=== PATIENT | female | born 1950 | race Two or more races ===

== ENCOUNTER 2019-05-19 03:08 | Inpatient (IN) | payer MEDICARE, MEDICAID ==
[~2019-05-19] VITALS: Ht 160 cm; Wt 68.5 kg
[2019-05-19] VITALS (10 sets, daily range): BP systolic 96–143; BP diastolic 42–67
--- NOTE | 2019-05-19 05:30 | NUR ---
OR NURSE MANAGER OPENING NOTE RECEIVED PATIENT IN BED BY EMS TRANSFER FROM [facility]. PATIENT IS A/OX4 TAGALOG SPEAKER BUT UNDERSTANDS CHINESE WITH DAUGHTER DONNA AT BEDSIDE. PATIENT IN NO SIGN OF ANY DISTRESS. ON 2L OF VIA NASAL CANNULA WITH NO SIGNS OF SOB. PATIENT DOES NOT COMPLAIN OF ANY DISCOMFORT. HAS A RIGHT FOREARM IV #24 PATENT AND FLUSHING. PUPILS REACTIVE TO LIGHT. LUNGS SOUNDS CLEAR. BOWELS SOUNDS PRESENT WITH NO PAIN. WILL CONTINUE TO MONITOR FOR KACEY.
[2019-05-19] MEDS ORDERED: LOSA100T31 PO (05:57)
[2019-05-19] MEDS ORDERED: CARV6.252 PO (05:57)
[2019-05-19] MEDS ORDERED: AMLO10TA7 PO (05:57)
[2019-05-19] MEDS ORDERED: ONDANSETRON HCL/PF 4 MG/2 ML VIAL IVP PRN (07:00)
[2019-05-19] MEDS ORDERED: MAGNESIUM HYDROXIDE 30 ML UDC PO PRN (07:00)
[2019-05-19] MEDS ORDERED: HYDROCODONE/APAP 5/325MG 1 EACH TABLET PO PRN (07:00)
[2019-05-19] MEDS ORDERED: MAG HYDROX/AL HYDROX/SIMETH 30 ML UDC PO PRN (07:00)
[2019-05-19] MEDS ORDERED: ZOLPIDEM TARTRATE 5 MG TABLET PO PRN (07:00)
[2019-05-19] MEDS ORDERED: Z GUARD REMEDY 2 OZ OINT TP PRN (07:00)
[2019-05-19] MEDS: IV NS 0.9% 1,000 ML IV PRN ×2 (07:02→07:15)
--- NOTE | 2019-05-19 07:52 | NUR ---
RESTAURANT MANAGEMENT INTERNSHIP CLOSING PATIENT IN BED WITH NO SIGN OF ANY DISTRESS. DAUGHTER AT BEDSIDE. TOLERATING 2L OF 02 WITH NO SIGNS OF SOB. PATIENT ON MONITOR NSR WITH HR IN THE 100'S. ALL SAFETY PRECAUTIONS APPLIED. ENDORSED PATIENT TO MORNING SHIFT NURSE FOR KACEY.
[2019-05-19 08:25] LABS: BASOPHILS % (AUTO) 0.1 % (0.0-2.0); EOSINOPHILS % (AUTO) 0.2 % (0.0-6.0); LYMPHOCYTES # (AUTO) 1.1 /CMM (0.8-4.8); MEAN CORPUSCULAR HGB CONC 31 g/dl (31.0-36.0); MEAN CORPUSCULAR VOLUME 94 fL (82-100); MONOCYTES # (AUTO) 1.3 /CMM (0.1-1.30); MONOCYTES % (AUTO) 8.7 % (2.0-12.0); NEUTROPHILS # (AUTO) 12.9 /CMM (1.8-8.9); PLATELET COUNT (AUTO) 72 /CMM (150-450); WHITE BLOOD COUNT (AUTO) 15.3 K/uL (4.3-11.0)
[2019-05-19 08:32] LABS: RED BLOOD CELL COUNT(AUTO) 1.82 MIL/uL (4.0-5.2)
[2019-05-19 08:36] LABS: ALBUMIN 1.9 g/dL (3.4-5.0); BILIRUBIN,TOTAL 0.3 mg/dL (0.2-1.0); CALCIUM, SERUM 7.3 mg/dL (8.5-10.1); CREATININE 0.7 mg/dL (0.6-1.3); MAGNESIUM 1.7 mg/dL (1.8-2.4); PHOSPHORUS 3.2 mg/dL (2.5-4.9); POTASSIUM 3.6 mmol/L (3.5-5.1); TOTAL PROTEIN, SERUM 4.1 g/dL (6.4-8.2)
[2019-05-19 08:38] LABS: HEMATOCRIT 17 % (33-45); HEMOGLOBIN 5.3 g/dL (11.5-14.8)
[2019-05-19 08:41] LABS: THYROID STIMULATING HORMONE 0.563 uIU/mL (0.358-3.74)
[2019-05-19 09:14] LABS: LYMPHOCYTES % (MANUAL) 10 % (16-48); MONOCYTES % (MANUAL) 5 % (0-11.0); NEUTROPHILS % (MANUAL) 85 (42-76)
--- NOTE | 2019-05-19 10:16 | NUR ---
Received report from JOE Mcgarry. Patient chart check. Diet order and blood consent signature pending . Bakari Alicia RN
[2019-05-19 10:40] LABS: IRON, SERUM 25 ug/dl (50-175); TOTAL IRON BINDING CAPACITY 165 ug/dl (250-450)
--- NOTE | 2019-05-19 13:29 | NUR ---
MRSA of nares specimen sent to laboratory for testing. Patient blood transfusion ongoing. Patient has a productive cough. Spouse of patient also has cough. Request for patient to provide stool ob if able. Placed container in toilet. Will monitor patient. Bakari Alicia RN
[2019-05-19] MEDS: Magnesium 1GM/D5W 100ML PREMIX 100 ML IV SCH ×2 (14:43→16:38)
--- NOTE | 2019-05-19 14:55 | NUR ---
Patient completion of 1 unit packed red blood cell. Vital signs are stable. Patient is watching television with family. Bakari Alicia RN
[2019-05-19] MEDS: GUAIFENESIN/D-METHORPHAN HB 5 ML UDC PO PRN ×2 (15:19→19:56)
[2019-05-19 16:30] LABS: HEMOGLOBIN 7.4 g/dL (11.5-14.8)
--- NOTE | 2019-05-19 19:12 | NUR ---
Handoff with night team RN, Chante. Bakari Alicia
--- NOTE | 2019-05-19 19:15 | NUR ---
OPENING NOTES RECEIVED PATIENT SITTING ON CHAIR, AWAKE, A/OX4, TAGALOG SPEAKING BUT UNDERSTANDS BHUTANESE, DAUGHTER DONNA AT BEDSIDE. DENIES ANY PAIN. ON TELE MONITOR ST WITH HR 120'S. ON ROOM AIR, TOLERATING WELL, NO SIGNS OF SOB OR RESPIRATORY DISTRESS NOTED, HOWEVER C/O COUGHING, WILL ADMINISTER PRN COUGH MEDICATION. IV SITE RIGHT FOREARM #20G AND RIGHT AC 22G, BOTH FLUSHING AND PATENT, IVF RUNNING ORDERED, NO INFILTRATION/INFECTION NOTED. PATIENT STATUS POST BLOOD TRANSFUSION 1 UNIT PRBC TODAY. SAFETY MEASURES IN PLACE; CALL LIGHT WITHIN REACH, SIDE RAILS UP X2, BED LOW AND LOCKED POSITION. WILL CONTINUE TO MONITOR CLOSELY.
--- NOTE | 2019-05-19 20:00 | NUR ---
RN NOTES PATIENT PLACED ON OXYGEN 2L VIA NC DUE TO LOW O2 SAT 93%, TOLERATING WELL, NO SOB OR RESPIRATORY DISTRESS NOTED. WILL CONT TO MONITOR.
--- NOTE | 2019-05-19 21:26 | NUR ---
Met with patient and daughter Eloise at bedside. Patient is alert and pleasant, she lives with family on the second floor apartment with stairs access only. At baseline, she was ambulatory and independent with adl's. Has no DME or homehealth reported. She finished her 6th cycle of chemotherapy at [facility]. Her pcp is Dr. Jacinto in [place] [phone]. She has good family support and receives 80hours/month IHSS. Current dc plan is to return home, family will provide ride. Addendum: 05/19/19 at 2126 by PEDRO LUIS ARDON RN Amended: Links added.
--- NOTE | 2019-05-19 23:55 | NUR ---
RN NOTES RN ROUNDING DONE, PATIENT REQUESTING COUGH MEDICATION. DAUGHTER DONNA AT BEDSIDE. WILL ADMINISTER PRN ROBITUSSIN. WILL CONT TO MONITOR PT.
[2019-05-20] VITALS (67 sets, daily range): BP systolic 64–138; BP diastolic 34–73
[2019-05-20] MEDS: IV NS 0.9% 1,000 ML IV PRN ×2 (03:57→19:48)
[2019-05-20] MEDS: GUAIFENESIN/D-METHORPHAN HB 5 ML UDC PO PRN ×3 (04:04→20:33)
--- NOTE | 2019-05-20 07:04 | NUR ---
RN CLOSING NOTES PATIENT SITTING ON BED, AWAKE, A/OX4, TAGALOG SPEAKING BUT UNDERSTANDS AUSTRALIAN, DAUGHTER DONNA AT BEDSIDE. DENIES ANY PAIN. ON TELE MONITOR ST WITH HR 100'S. ON OXYGEN 2L VIA NC, TOLERATING WELL, NO SIGNS OF SOB OR RESPIRATORY DISTRESS NOTED. IV SITE RIGHT FOREARM #20G AND RIGHT AC 22G, BOTH FLUSHING AND PATENT, IVF RUNNING ORDERED, NO INFILTRATION/INFECTION NOTED. SAFETY MEASURES IN PLACE; CALL LIGHT WITHIN REACH, SIDE RAILS UP X2, BED LOW AND LOCKED POSITION. WILL ENDORSE TO AM RN FOR KACEY.
[2019-05-20 07:11] LABS: EOSINOPHILS % (AUTO) 0.2 % (0.0-6.0); LYMPHOCYTES # (AUTO) 1.2 /CMM (0.8-4.8); LYMPHOCYTES % (AUTO) 6.9 % (20.0-44.0); MEAN CORPUSCULAR HGB CONC 31 g/dl (31.0-36.0); MEAN CORPUSCULAR VOLUME 92 fL (82-100); MONOCYTES # (AUTO) 1.8 /CMM (0.1-1.30); MONOCYTES % (AUTO) 10.1 % (2.0-12.0); NEUTROPHILS # (AUTO) 14.5 /CMM (1.8-8.9); NEUTROPHILS % (AUTO) 82.8 % (43.0-81.0); PLATELET COUNT (AUTO) 77 /CMM (150-450); WHITE BLOOD COUNT (AUTO) 17.6 K/uL (4.3-11.0)
[2019-05-20 07:25] LABS: CALCIUM, SERUM 7.3 mg/dL (8.5-10.1); CREATININE 0.4 mg/dL (0.6-1.3); MAGNESIUM 2.2 mg/dL (1.8-2.4); PHOSPHORUS 2.5 mg/dL (2.5-4.9); POTASSIUM 3.5 mmol/L (3.5-5.1)
[2019-05-20 07:32] LABS: RED BLOOD CELL COUNT(AUTO) 1.99 MIL/uL (4.0-5.2)
[2019-05-20 07:34] LABS: HEMATOCRIT 18 % (33-45); HEMOGLOBIN 5.6 g/dL (11.5-14.8)
--- NOTE | 2019-05-20 08:00 | NUR ---
RN note SPOKE WITH DR MORENO REGARDING HGB 5.6 HCT 18, AND PT HAS BLACK STOOL WITH BRIGHT RED BLOOD, HE ORDERED 2 UNITS PRBCS STAT. WILL ORDER AND CARRY OUT ORDERS.
[2019-05-20 08:30] LABS: LYMPHOCYTES % (MANUAL) 3 % (16-48); MONOCYTES % (MANUAL) 7 % (0-11.0); NEUTROPHILS % (MANUAL) 89 (42-76); REACTIVE LYMPHOCYTES 1 % (0-0)
--- NOTE | 2019-05-20 09:15 | NUR ---
SPOKE WITH DR MORENO HE ORDERED PROTONIX BID, AND HE IS GOING TO CONSULT GI DOCTOR. WILL ORDER AND CARRY OUT ORDERS. REPORTED TO DR MORENO THAT HR IS IN 133-145, HE SAID TO GIVE BLOOD TRANSFUSION.
[2019-05-20] MEDS: PANTOPRAZOLE 40 MG VIAL IV SCH ×2 (09:54→16:34)
[2019-05-20] MEDS: ACETAMINOPHEN 325 MG TABLET PO PRN ×2 (10:13→19:56)
[2019-05-20] MEDS ORDERED: HYDROCORTISONE SOD SUCCINATE 100 MG/2 ML VIAL IV STA (10:16)
[2019-05-20] MEDS ORDERED: diphenhydrAMINE HCL 50 MG/ML VIAL IV STA (10:16)
[2019-05-20 10:26] LABS: OCCULT BLOOD STOOL POSITIVE (NEGATIVE)
--- NOTE | 2019-05-20 10:30 | NUR ---
PATIENT DEVELOP FEVER DURING TRANSFUSION 100.5,C/O WHEEZING,SBP 80'S TO 90'S,HAD BLOODY STOOL AGAIN AND TACHY 140,S,DR. MORENO NOTIFIED AND INITIATED BLOOD REACTION TRANSFUSION ORDERS,PRIMARY RN STOPPED BLOOD,DR. CHANG NOTIFIED FOR CONSULT,AWAITS GI EVAL.
--- NOTE | 2019-05-20 10:50 | NUR ---
RN NOTE PT HAD STARTED BLOOD TRANSFUSION AT 0935, VITAL SIGNS WERE CLOSELY MONITORED, TEMPERATURE WENT UP FROM 98.8 TO 100.0 F AXILLARY, BLOOD PRESSURE DROPPED TO 84/49. BLOOD STOPPED AT 1006 IMMEDIATELY UPON CHECKING VITAL SIGNS, NO HIVES, NO SOB, PT DENIED PAIN. PT'S DAUGHTER, AT BEDSIDE AND AWARE ABOUT SITUATION. AND WORK UP ORDERED AND PERFORMED, BLOOD SENT TO LAB, DR NOTIFIED AND ORDERED TO TRANSFER TO ICU BED 263. PT PENDING CARDIOLOGY AND GI CONSULT. AWAITING PT TO PROVIDE URINE SAMPLE. UPON ARRIVAL TO ICU PT BP WENT 120/53MMHG, AND HR 150-138. TEMP 99.0F ORALLY.
--- NOTE | 2019-05-20 11:10 | NUR ---
DAUGHTER AT BEDSIDE AWARE OF PLAN OF CARE AND TRANSFER PATIENT TO ICU ROOM 263.NURSING SUP AWARE.
--- NOTE | 2019-05-20 11:20 | NUR ---
RN NOTE BP IS LOW 82/44 80/41, HR 140S, DR MORENO REACHED AND TO GIVE BOLUS 1000 ML OF NS WIDE OPEN. WILL ORDER AND MONITOR CLOSELY.
[2019-05-20] MEDS ORDERED: IV NS 0.9% 1,000 ML IV PRN (11:30)
--- NOTE | 2019-05-20 11:45 | NUR ---
DR. JOSH FRANK MADE AWARE OF SBP 80'S. ST 130'S. RECENT TEMP 98.0. PER MD- HOLD 3RD UNIT OF BLOOD TRANSFUSION SECONDARY TRANSFUSION REACTION AT THIS TIME. COMPLETE IL NS BOLUS , NO PRESORS . WILL REFER ACCORDINGLY.
--- NOTE | 2019-05-20 13:00 | NUR ---
RN NOTE PER DR MORENO TO INSERT CRENSHAW, PICCLINE AND START NEOSYNEPHRINE PER PROTOCOL.
[2019-05-20] MEDS: PHENYLEPHRINE 80 MG in IV NS 0.9% 250 ML IV PRN (13:40)
[2019-05-20 14:33] LABS: APPEARANCE,URINE SL CLOUDY (CLEAR); BILIRUBIN,URINE NEGATIVE (NEGATIVE); BLOOD, URINE LARGE Ery/uL (NEGATIVE); COLOR,URINE YELLOW (YELLOW); KETONES,URINE NEGATIVE (NEGATIVE); LEUKOCYTE ESTERASE ,URINE NEGATIVE (NEGATIVE); NITRITE, URINE NEGATIVE (NEGATIVE); PH,URINE 5.5 (5.0-8.0); PROTEIN,URINE NEGATIVE (NEGATIVE); UGLUCOSE NEGATIVE (NEGATIVE); UROBILINOGEN,URINE 0.2 EU/dL (0.2)
--- NOTE | 2019-05-20 17:35 | NUR ---
RN NOTE MESSAGED DR MORENO REGARDING PROCAL LEVEL 0.4, CXR NEGATIVE, NO RESPONSE YET, NO NEW ORDERS YET.
--- NOTE | 2019-05-20 17:45 | NUR ---
RN NOTE RECEIVED CALL FROM LAB REGARDING BLOOD TRANSFUSION REACTION WORK UP AND PATHOLOGY REPORT. PER PATHOLOGIST OKAY TO GIVE ANOTHER UNIT OF PRBCS, BUT NEED TO GIVE BENADRYL FIRST AND MONITOR PT CLOSELY FOR TRANSFUSION REACTION, IF PT DEVELOPS CHILLS, DYSPNEA, OR OTHER REACTIONS TO STOP BLOOD IMMEDIATELY. WILL FOLLOW P WITH MD REGARDING BENADRYL DOSE. 1 UNIT PRBCS ORDERED NOW
[2019-05-20 17:58] LABS: APPEARANCE,URINE CLEAR (CLEAR); BILIRUBIN,URINE NEGATIVE (NEGATIVE); BLOOD, URINE NEGATIVE Ery/uL (NEGATIVE); COLOR,URINE YELLOW (YELLOW); KETONES,URINE NEGATIVE (NEGATIVE); LEUKOCYTE ESTERASE ,URINE NEGATIVE (NEGATIVE); NITRITE, URINE NEGATIVE (NEGATIVE); PH,URINE 5.5 (5.0-8.0); PROTEIN,URINE NEGATIVE (NEGATIVE); UGLUCOSE NEGATIVE (NEGATIVE); UROBILINOGEN,URINE 0.2 EU/dL (0.2)
[2019-05-20] MEDS ORDERED: diphenhydrAMINE HCL 50 MG/ML VIAL IV ONE (19:00)
--- NOTE | 2019-05-20 19:45 | NUR ---
RN NOTE: Received patient in bed asleep, but easily arousable with tactile stimuli and verbal cues. HOB elevated. Breathing even and unlabored saturating 100% with O2 2L/min via NC. (R) UA PICC line noted intact and patent with Neosynephrine 150mcg/min and NS @75ml/hr. Skin warm to touch. Denied any pain. Bed alarmed and locked at all times. Daughter at the bedside. Sequeira catheter in placed with yellow urine draining to gravity. Call light within reach. Needs anticipated. Will follow-up with blood bank regarding the blood transfusion and will premedicate the patient per 's order prior to blood transfusion.
[2019-05-21] VITALS (66 sets, daily range): BP systolic 83–142; BP diastolic 35–98
[2019-05-21] MEDS: PHENYLEPHRINE 80 MG in IV NS 0.9% 250 ML IV PRN ×3 (00:03→21:05)
--- NOTE | 2019-05-21 01:00 | NUR ---
RN NOTE: H/H was drawn through the patient's (R) UA PICC line and pending result.
--- NOTE | 2019-05-21 01:10 | NUR ---
RN NOTE: H/H drawn per Dr. Bowen's order post 1 unit PRBC transfusion.
--- NOTE | 2019-05-21 01:32 | NUR ---
RN NOTE: Critical lab for H/H 4.10/28 was called from lab. Requested to redraw the blood through peripheral draw due top possible dilution of the specimen.
[2019-05-21 01:33] LABS: HEMOGLOBIN 4.8 g/dL (11.5-14.8)
[2019-05-21 03:29] LABS: HEMOGLOBIN 5.7 g/dL (11.5-14.8)
--- NOTE | 2019-05-21 03:30 | NUR ---
RN NOTE: Received a critical lab result for H/H .09/[address] Bowen keep the Hgb >8 and another 1 unit PRBC was ordered to blood bank.
[2019-05-21] MEDS: diphenhydrAMINE HCL 50 MG/ML VIAL IV PRN ×2 (04:07→10:53)
--- NOTE | 2019-05-21 04:48 | NUR ---
RN NOTE: 2nd bag of 1 unit PRBC was started to be infuse at this time. Will endorse to dayshift nurse regarding the standing orders of Dr. Bowen. Patient was premedicated with Benadryl. Will closely monitor the patient for any blood transfusion reaction.
[2019-05-21 05:01] LABS: BASOPHILS % (AUTO) 0.1 % (0.0-2.0); LYMPHOCYTES # (AUTO) 1.9 /CMM (0.8-4.8); LYMPHOCYTES % (AUTO) 8.9 % (20.0-44.0); MEAN CORPUSCULAR HGB CONC 31 g/dl (31.0-36.0); MEAN CORPUSCULAR VOLUME 92 fL (82-100); MONOCYTES # (AUTO) 2.1 /CMM (0.1-1.30); NEUTROPHILS # (AUTO) 17.3 /CMM (1.8-8.9); PLATELET COUNT (AUTO) 107 /CMM (150-450)
[2019-05-21 05:11] LABS: RED BLOOD CELL COUNT(AUTO) 1.78 MIL/uL (4.0-5.2)
[2019-05-21 05:14] LABS: HEMATOCRIT 16 % (33-45); HEMOGLOBIN 5.1 g/dL (11.5-14.8)
[2019-05-21 05:25] LABS: CREATININE 0.6 mg/dL (0.6-1.3); POTASSIUM 3.5 mmol/L (3.5-5.1)
[2019-05-21 06:07] LABS: BAND % (MANUAL) 5 % (0.0-5.0); LYMPHOCYTES % (MANUAL) 8 % (16-48); METAMYELOCYTES % 1 % (0-0); MONOCYTES % (MANUAL) 6 % (0-11.0); NEUTROPHILS % (MANUAL) 80 (42-76)
[2019-05-21 06:10] LABS: WHITE BLOOD COUNT (AUTO) 21.4 K/uL (4.3-11.0)
--- NOTE | 2019-05-21 07:15 | NUR ---
PRIVATE INVESTIGATOR SURVEILLANCE opening Received patient A/Ox4, 2L O2 SPO2 99%, no SOB or distress noted. Tele monitor attached, sinus rhythm HR 70s, bennett catheter draining to gravity, NPO status, CHELSEY PICC line infusing NS @75mL/hr, Nathen 150mcg/min and blood transfusion ending. R FA 20G, R AC 22G, SL. Daughter at bedside, per report H&H to be drawn 1 hr after transfusion ends.
--- NOTE | 2019-05-21 07:25 | NUR ---
RN NOTE: Bedside report was given to JOE Sagastume for continuity of care. Patient was still receiving the blood transfusion and was endorsed to end the transfusion and check the parameters per Dr. Bowen to keep Hgb >8. Daughter remained at the bedside. Neosynephrine drip was still infusing and SBP was maintained per parameters of the MD order.
[2019-05-21] MEDS: PANTOPRAZOLE 40 MG VIAL IV SCH (08:20)
[2019-05-21] MEDS: HYDROCORTISONE SOD SUCCINATE 100 MG/2 ML VIAL IV SCH ×3 (09:24→17:57)
[2019-05-21] MEDS: IV NS 0.9% 1,000 ML IV PRN (10:15)
[2019-05-21 10:59] LABS: HEMOGLOBIN 7.2 g/dL (11.5-14.8)
[2019-05-21] MEDS: FLUDROCORTISONE 0.1 MG TABLET PO SCH ×3 (12:00→23:44)
--- NOTE | 2019-05-21 13:00 | NUR ---
oral care provided to patient prior to EGD, patient confirmed NPO status, consents signed
--- NOTE | 2019-05-21 13:50 | NUR ---
patient transported to EGD per ACLS protocol with IV drips, Dr. Treadwell aware patient had large bloody BM this am and endorsed to surgical aides teacher for communication with surgeon. new H&H to be drawn after procedure
[2019-05-21] MEDS ORDERED: MIDAZOLAM HCL 2 MG/2ML VIAL ONE (14:11)
[2019-05-21] MEDS ORDERED: PANTOPRAZOLE 80 MG in IV NS 0.9% 100 ML IV ONE (15:00)
--- NOTE | 2019-05-21 15:05 | NUR ---
Patient awake, alert, oriented x4 s/p EGD by Dr. Townsend. 2L O2 SPO2 >94%, no distress. See long form vitals for post op vitals. Patient able to swallow, however NPO status ordered by Dr. Townsend. Stat h&h ordered per Dr. Bowen order keep hgb >8.
--- NOTE | 2019-05-21 15:50 | NUR ---
patient's linens changed, denies wanting a bed bath for today, encouraged to turn, however "pillows feel uncomfortable", offered oral care
--- NOTE | 2019-05-21 16:07 | NUR ---
Patient seen by Dr. Bowen. Aware of WBC trending upward, temp 99.6 max today, productive cough with yellow sputum. Communication with Dr. Treadwell for prophylactic abx done by Dr. Bowen. Additionally, per Dr. Bowen, no need to transfuse, Hgb 8.0 and no need for reverse isolation, patient is not neutropenic.
[2019-05-21] MEDS ORDERED: LEVOFLOXACIN (250MG) 250 MG TABLET PO SCH (17:00)
[2019-05-21] MEDS ORDERED: LEVOFLOXACIN (750 MG) 750 MG TABLET PO SCH (17:00)
[2019-05-21] MEDS: PANTOPRAZOLE 80 MG in IV NS 0.9% 500 ML IV PRN (17:57)
[2019-05-21] MEDS: LEVOFLOXACIN 750 MG /D5W 150ML 750 MG in PREMIX 1 EA IV SCH (18:42)
--- NOTE | 2019-05-21 19:30 | NUR ---
AUDIO VISUAL DIRECTOR RCD PT W/DX ANEMIA; PT A/Ox4. DAUGHTER AT BEDSIDE. PT DENIES PAIN OR SOB. NSR ON MONITOR. MANDA @ 75 MCG/MIN. O2 2L VIA NC. PER REPORT NEXT BLOOD DRAW IN AM.
--- NOTE | 2019-05-21 22:00 | NUR ---
RECORDS SUPERVISOR PT NOTED TO HAVE SMALL BLOODY MOVEMENT. CONTINUE TO MONITOR.
--- NOTE | 2019-05-21 23:30 | NUR ---
RAILROAD HAND PT NOTED WITH COUGH; DECLINED COUGH MEDICINE AT THIS TIME.
[2019-05-22] VITALS (71 sets, daily range): BP systolic 96–140; BP diastolic 41–74
[2019-05-22] MEDS: IV NS 0.9% 1,000 ML IV PRN (01:01)
[2019-05-22] MEDS ORDERED: PANTOPRAZOLE 40 MG VIAL ONE (02:34)
[2019-05-22] MEDS: PANTOPRAZOLE 80 MG in IV NS 0.9% 500 ML IV PRN (02:41)
[2019-05-22] MEDS: FLUDROCORTISONE 0.1 MG TABLET PO SCH ×3 (05:11→17:18)
[2019-05-22 05:53] LABS: CALCIUM, SERUM 7.7 mg/dL (8.5-10.1); CREATININE 0.5 mg/dL (0.6-1.3); HEMATOCRIT 23 % (33-45); HEMOGLOBIN 7.1 g/dL (11.5-14.8); LYMPHOCYTES # (AUTO) 1.2 /CMM (0.8-4.8); LYMPHOCYTES % (AUTO) 7.3 % (20.0-44.0); MEAN CORPUSCULAR HGB CONC 31 g/dl (31.0-36.0); MEAN CORPUSCULAR VOLUME 88 fL (82-100); MONOCYTES # (AUTO) 1.1 /CMM (0.1-1.30); MONOCYTES % (AUTO) 6.4 % (2.0-12.0); NEUTROPHILS # (AUTO) 14.3 /CMM (1.8-8.9); NEUTROPHILS % (AUTO) 86.3 % (43.0-81.0); PHOSPHORUS 3.2 mg/dL (2.5-4.9); PLATELET COUNT (AUTO) 101 /CMM (150-450); POTASSIUM 3.4 mmol/L (3.5-5.1); RED BLOOD CELL COUNT(AUTO) 2.56 MIL/uL (4.0-5.2); WHITE BLOOD COUNT (AUTO) 16.6 K/uL (4.3-11.0)
--- NOTE | 2019-05-22 06:00 | NUR ---
KELP OR SEAGRASS GATHERER PT DECLINED BED BATH; ENCOURAGED PT TO TURN AND REPOSITION FREQUENTLY. SKIN REMAINS INTACT. RENDERED ORAL CARE. PROTONIX CONTINUES @ 8 MG/HR. MANDA TITRATED TO 20 MCG/MIN. CONTINUE TO MONITOR.
--- NOTE | 2019-05-22 06:17 | NUR ---
BACTERIOLOGIST FOOD DAUGHTER REMAINED AT BEDSIDE.
[2019-05-22 06:41] LABS: BAND % (MANUAL) 3 % (0.0-5.0); LYMPHOCYTES % (MANUAL) 1 % (16-48); MONOCYTES % (MANUAL) 8 % (0-11.0); NEUTROPHILS % (MANUAL) 84 (42-76)
[2019-05-22 06:42] LABS: METAMYELOCYTES % 3 % (0-0); MYELOCYTES % 1 % (0-0)
--- NOTE | 2019-05-22 08:00 | NUR ---
ICU/RN INITIAL NOTES,AM RECEIVED BEDSIDE REPORT FROM NIGHT NURSE. PT ALERT, AWAKE, FOLLOWS COMMANDS. PT ON 2LITERS NASAL CANULA, NO DISTRESS NOTED. SINUS ON TELE. CRENSHAW CATH IN PLACE, DRAINING YELLOW URINE. SKIN INTACT. CURRENTLY NPO. RIGHT UPPER ARM PICC LINE PATENT AND INTACT, NO S/S OF INFECTION OR INFILTRATION NOTED, MANDA INFUSING AT 20 MCG FOR BP SUPPORT WILL TITRATE PER PROTOCOL, IV FLUIDS AND PROTONIX DRIP INFUSING ORDERED. DAUGHTER OF PT AT BEDSIDE. ALL NEEDS WILL BE ATTENDED TO, SAFETY MEASURES TAKEN, BED IN LOW POSITION, SIDE RAILS UP, CALL LIGHT WITHIN REACH. WILL CONTINUE CARE.
[2019-05-22] MEDS: HYDROCORTISONE SOD SUCCINATE 100 MG/2 ML VIAL IV SCH ×3 (08:04→17:18)
[2019-05-22] MEDS ORDERED: IV D5W 1,000 ML IV PRN (08:39)
[2019-05-22] MEDS: Potassium Chloride 40 MEQ in IV D5W 1,000 ML IV PRN ×2 (11:57→12:12)
--- NOTE | 2019-05-22 13:07 | NUR ---
ICU/RN: AT BEDSIDE. NEW ORDERS RECEIVED WILL FOLLOW THROUGH. PT PLACED ON FULL LIQUID DIET. AND DAUGHTER AT BEDSIDE.
--- NOTE | 2019-05-22 13:07 | NUR ---
ICU/RN: MANDA OFF, BP 139/76. WILL CONTINUE TO MONITOR. PER WE ARE TO KEEP SBP >100.
[2019-05-22 13:15] LABS: URINE SODIUM, RANDOM 77 mmol/l (40-220)
[2019-05-22 13:18] LABS: OSMOLALITY,URINE 602 mOS/kg (340-1090)
[2019-05-22] MEDS: SOD FERRIC GLUC 125 MG in IV NS 0.9% 100 ML IV SCH (14:10)
[2019-05-22] MEDS: LEVOFLOXACIN 750 MG /D5W 150ML 750 MG in PREMIX 1 EA IV SCH (17:46)
[2019-05-22] MEDS ORDERED: ACETAMINOPHEN 325 MG TABLET PO ONE ×2 (19:00→22:30)
[2019-05-22] MEDS ORDERED: diphenhydrAMINE HCL 50 MG/ML VIAL IV ONE ×2 (19:00→22:30)
--- NOTE | 2019-05-22 19:40 | NUR ---
ICU/RN: ENDING NOTES,AM BEDSIDE REPORT ENDORSED TO NIGHT NURSE FOR KACEY. PT ALERT, AWAKE, FOLLOWS COMMANDS. ON 2LITERS NASAL CANULA, NO DISTRESS NOTED. SINUS ON TELE. CRENSHAW CATH IN PLACE, DRAINING YELLOW URINE. PT ON FULL LIQUID DIET, GI PENDING FOR REPEAT EGD SCHEDULING. MD PAGED. ALL NEEDS ATTENDED TO, SAFETY MEASURES TAKEN, BED IN LOW POSITION, SIDE RAILS UP, CALL LIGHT WITHIN REACH. WILL CONTINUE CARE. DAUGHTER OF PT AT BEDSIDE.
[2019-05-22] MEDS: PANTOPRAZOLE 40 MG VIAL IV SCH (21:58)
[2019-05-23] VITALS (29 sets, daily range): BP systolic 108–139; BP diastolic 50–90
[2019-05-23] MEDS: FLUDROCORTISONE 0.1 MG TABLET PO SCH ×2 (00:15→06:00)
[2019-05-23 01:47] LABS: URINE SODIUM, RANDOM 72 mmol/l (40-220)
[2019-05-23 01:52] LABS: OSMOLALITY,URINE 575 mOS/kg (340-1090)
--- NOTE | 2019-05-23 03:25 | NUR ---
RN NOTES BLOOD TRANSFUSION IS DONE W/O ANY ALLERGIC REACTIONS. PATIENT WAS PRE MEDICATED WITH BENADRYL 25MG IV AND TYLENOL 650MG PO PRIOR TRANSFUSION. V/S DURING AND AFTER TRANSFUSION STAYED WNL, NO SOB, NO CHEST PAIN WAS REPORTED BY PATIENT. DAUGHTER IS AT THE BEDSIDE WHO IS RN AT [facility]. WILL CONTINUE TO MONITOR PATIENT CLOSELY.
[2019-05-23] MEDS: Potassium Chloride 40 MEQ in IV D5W 1,000 ML IV PRN (04:04)
[2019-05-23 04:43] LABS: BASOPHILS % (AUTO) 0.1 % (0.0-2.0); HEMATOCRIT 26 % (33-45); LYMPHOCYTES # (AUTO) 1.1 /CMM (0.8-4.8); LYMPHOCYTES % (AUTO) 5.7 % (20.0-44.0); MEAN CORPUSCULAR HGB CONC 31 g/dl (31.0-36.0); MEAN CORPUSCULAR VOLUME 92 fL (82-100); MONOCYTES # (AUTO) 1.4 /CMM (0.1-1.30); MONOCYTES % (AUTO) 6.9 % (2.0-12.0); NEUTROPHILS # (AUTO) 17.2 /CMM (1.8-8.9); NEUTROPHILS % (AUTO) 87.3 % (43.0-81.0); PLATELET COUNT (AUTO) 111 /CMM (150-450); RED BLOOD CELL COUNT(AUTO) 2.81 MIL/uL (4.0-5.2); WHITE BLOOD COUNT (AUTO) 19.7 K/uL (4.3-11.0)
[2019-05-23 05:10] LABS: CALCIUM, SERUM 7.6 mg/dL (8.5-10.1); CREATININE 0.5 mg/dL (0.6-1.3); PHOSPHORUS 3.1 mg/dL (2.5-4.9); POTASSIUM 5.1 mmol/L (3.5-5.1)
[2019-05-23 05:35] LABS: THYROID STIMULATING HORMONE 0.321 uIU/mL (0.358-3.74); URIC ACID 5.7 mg/dL (2.6-7.2)
[2019-05-23] MEDS ORDERED: ANESTHESIA TRAY IN PYXIS 1 EA TRAY MC ONE (06:28)
--- NOTE | 2019-05-23 06:36 | NUR ---
PATIENT WAS TAKEN TO EGD PROCEDURE AT 0635.
--- NOTE | 2019-05-23 07:30 | NUR ---
ICU/RN: RECEIVED REPORT FROM NIGHT NURSE. PT OFF UNIT FOR EGD.
--- NOTE | 2019-05-23 08:21 | NUR ---
ICU/RN: RECEIVED BEDSIDE REPORT FROM ROGER PEREZ RN. PT S/P EGD WITH GENERAL ANAESTHESIA. PER MD PT IS TO REMAIN NPO. PT ALERT, AWAKE, DROWSY. ON 2 LITERS NASAL CANULA, 100% O2 SAT. SINUS ON TELE. CRENSHAW CATH IN PLACE, DRAINING YELLOW URINE. PIVS PATENT, SOME REDNESS NOTED AROUND RIGHT UPPER ARM PICC LINE, GOOD BLOOD RETURN NOTED, WILL CONTINUE TO MONITOR. DAUGHTER AT BEDSIDE, UPDATES GIVEN. ALL NEEDS WILL BE ATTENDED TO, SAFETY MEASURES TAKEN, BED IN LOW POSITION, SIDE RAILS UP, CALL LIGHT WITHIN REACH. WILL CONTINUE CARE.
[2019-05-23] MEDS: PANTOPRAZOLE 40 MG VIAL IV SCH ×2 (08:52→21:02)
[2019-05-23] MEDS: HYDROCORTISONE SOD SUCCINATE 100 MG/2 ML VIAL IV SCH ×3 (08:52→17:26)
--- NOTE | 2019-05-23 11:00 | NUR ---
ICU/RN: REPEAT BMP TO CONFIRM RESULTS. WILL FOLLOW UP.
[2019-05-23 12:21] LABS: CREATININE 0.6 mg/dL (0.6-1.3); POTASSIUM 3.9 mmol/L (3.5-5.1)
[2019-05-23] MEDS: SOD FERRIC GLUC 125 MG in IV NS 0.9% 100 ML IV SCH (13:33)
[2019-05-23] MEDS ORDERED: PHENYLEPHRINE 50 MG in IV NS 0.9% 245 ML IV PRN (15:00)
[2019-05-23 16:00] LABS: HEMOGLOBIN 8.2 g/dL (11.5-14.8)
[2019-05-23] MEDS: LEVOFLOXACIN 750 MG /D5W 150ML 750 MG in PREMIX 1 EA IV SCH (17:28)
--- NOTE | 2019-05-23 18:58 | NUR ---
ICU/RN: ENDING NOTES,AM BEDSIDE REPORT WILL BE ENDORSED TO NIGHT NURSE FOR KACEY. PT ALERT, AWAKE, FOLLOWS COMMANDS. ON 2LITERS NASAL CANULA, NO DISTRESS NOTED. SINUS ON TELE. CRENSHAW CATH IN PLACE, DRAINING YELLOW URINE. PT NPO, PT S/P REPEAT EGD. ALL NEEDS ATTENDED TO, SAFETY MEASURES TAKEN, BED IN LOW POSITION, SIDE RAILS UP, CALL LIGHT WITHIN REACH. WILL CONTINUE CARE. DAUGHTER OF PT AT BEDSIDE.
[2019-05-24] VITALS (17 sets, daily range): BP systolic 94–140; BP diastolic 54–79
[2019-05-24] MEDS: Potassium Chloride 40 MEQ in IV D5W 1,000 ML IV PRN (03:03)
[2019-05-24 04:53] LABS: BASOPHILS % (AUTO) 0.1 % (0.0-2.0); EOSINOPHILS % (AUTO) 0.3 % (0.0-6.0); HEMATOCRIT 29 % (33-45); HEMOGLOBIN 9.1 g/dL (11.5-14.8); LYMPHOCYTES # (AUTO) 0.9 /CMM (0.8-4.8); LYMPHOCYTES % (AUTO) 4.4 % (20.0-44.0); MEAN CORPUSCULAR HGB CONC 31 g/dl (31.0-36.0); MEAN CORPUSCULAR VOLUME 93 fL (82-100); MONOCYTES # (AUTO) 1.3 /CMM (0.1-1.30); MONOCYTES % (AUTO) 6.8 % (2.0-12.0); NEUTROPHILS # (AUTO) 17.3 /CMM (1.8-8.9); NEUTROPHILS % (AUTO) 88.4 % (43.0-81.0); PLATELET COUNT (AUTO) 144 /CMM (150-450); RED BLOOD CELL COUNT(AUTO) 3.11 MIL/uL (4.0-5.2); WHITE BLOOD COUNT (AUTO) 19.5 K/uL (4.3-11.0)
[2019-05-24 05:12] LABS: CALCIUM, SERUM 8.1 mg/dL (8.5-10.1); CREATININE 0.5 mg/dL (0.6-1.3); MAGNESIUM 2.3 mg/dL (1.8-2.4); PHOSPHORUS 3.5 mg/dL (2.5-4.9); POTASSIUM 3.9 mmol/L (3.5-5.1)
--- NOTE | 2019-05-24 06:50 | NUR ---
APPLIED COMPUTER SCIENCE PROFESSOR: NO SIGNIFICANT KACEY DURING THE SHIFT. PT REMAINS A/O X4. ON 2L 02 VIA NC WT NO ACUTE DISTRESS. NO C/O PAIN OR EVIDENCE OF DISCOMFORT. SR ON SANFORIZER. AFEBRILE. STILL OFF VASOPRESSOR. CONTINUE ON D5W WT KCL 40MEQ AT 80ML/HR. NO S/S OF IV INFILTRATION. NO ACTIVE BLEEDING, NO BOWEL MOVEMENT DURING THE SHIFT. F/C PATENT AND INTACT DRAINING YELLOW URINE TO GRAVITY. HOB AT 35 DEGREES. BED IN LOWEST POSITION AND LOCKED, BED ALARM ON, SIDE RAILS UP X 2, DAUGHTER AT BED SIDE, CALL LIGHT WITHIN REACH. ALL NEEDS MET. WILL CONTINUE TO MONITOR.
--- NOTE | 2019-05-24 08:00 | NUR ---
ICU/RN AM SHIFT OPENING NOTES RECEIVED PT SLEEPING, EASILY AROUSED WITH DAUGHTER AT BEDSIDE, PT A/O X 4, DENIES ANY SYMPTOMS AT THIS TIME, ON 2L O2 VIA N/C SATURATING @ 93%, RESPIRATIONS EVEN & UNLABORED, LUNG SOUNDS CLEAR. ON TELE MONITORING, SINUS RHYTHM, HR 80. WITH GOING IV INFUSION OF KCL 40MEQ IN D5W @ 80CC/HR, NOTED IV SITE SWOLLEN BUT NO RESISTANCE WHEN FLUSHED, INFUSION DISCONTINUED. PT ON NPO STATUS AT THIS TIME, WILL FOLLOW-UP ON ADVANCING DIET. PT IS COMFORTABLE, CL WITHIN REACHED AND SAFETY MAINTAINED. ON GOING MONITORING.
[2019-05-24] MEDS: PANTOPRAZOLE 40 MG VIAL IV SCH ×2 (08:45→20:32)
[2019-05-24] MEDS: HYDROCORTISONE SOD SUCCINATE 100 MG/2 ML VIAL IV SCH (08:46)
--- NOTE | 2019-05-24 14:30 | NUR ---
ICU/RN DOWNGRADED MEDSURG PT TRANSFERRED TO MS1 TO ROOM 104 IN STABLE CONDITION. MONITORING CONTINUED.
[2019-05-24] MEDS: SOD FERRIC GLUC 125 MG in IV NS 0.9% 100 ML IV SCH (16:40)
[2019-05-24] MEDS: ENSURE CLEAR 237 ML LIQUID (MIX BERRY) PO SCH (17:00)
[2019-05-24] MEDS ORDERED: HYDROCORTISONE SOD SUCCINATE 100 MG/2 ML VIAL IV SCH (17:00)
[2019-05-24] MEDS: LEVOFLOXACIN 750 MG /D5W 150ML 750 MG in PREMIX 1 EA IV SCH (19:08)
--- NOTE | 2019-05-24 19:30 | NUR ---
MS1/RN AM SHIFT CLOSING NOTES ALL NEEDS MET. NO ACUTE CHANGE OF DURING THE SHIFT. PT ENDORSED TO PM NURSE TO CONTINUE CARE. CL WITHIN REACHED AND SAFETY MAINTAINED.
--- NOTE | 2019-05-24 19:45 | NUR ---
MS1 RN NOTES RECEIVED ON BED A/O X4,BREATHING NON LABORED,PALE LOOKING,SALINE LOCK RIGHT AC INTACT AND PATENT.APPEARS SWOLLEN UPPER AND LOWER EXTREMITIES.NOTED WEEPING ON RIGHT UPPER ARM.ON GEL BED FOR SKIN MANAGEMENT.O2 USED ON AND OFF,100% ON ROOM AIR.FAMILY MEMBER AT BEDSIDE.CALL LIGHT IN REACH,NEEDS ANTICIPATED.
--- NOTE | 2019-05-24 21:00 | NUR ---
MS1 RN NOTES DUE PROTONIX 40MG IV ADMINISTERED SCHEDULED.
--- NOTE | 2019-05-25 06:20 | NUR ---
MS1 RN NOTES SLEEP WELL,DENIES ANY DISCOMFORTS,FAMILY MEMBER AT BEDSIDE.IN NO ACUTE DISTRESS.WILL EMDORSE TO DAY NURSE FOR KACEY
[2019-05-25 06:44] LABS: BASOPHILS % (AUTO) 0.1 % (0.0-2.0); HEMATOCRIT 31 % (33-45); HEMOGLOBIN 9.7 g/dL (11.5-14.8); LYMPHOCYTES # (AUTO) 0.7 /CMM (0.8-4.8); LYMPHOCYTES % (AUTO) 4.9 % (20.0-44.0); MEAN CORPUSCULAR HGB CONC 32 g/dl (31.0-36.0); MEAN CORPUSCULAR VOLUME 93 fL (82-100); MONOCYTES % (AUTO) 6.7 % (2.0-12.0); NEUTROPHILS # (AUTO) 13.3 /CMM (1.8-8.9); NEUTROPHILS % (AUTO) 88.3 % (43.0-81.0); PLATELET COUNT (AUTO) 167 /CMM (150-450); RED BLOOD CELL COUNT(AUTO) 3.32 MIL/uL (4.0-5.2); WHITE BLOOD COUNT (AUTO) 15.1 K/uL (4.3-11.0)
[2019-05-25 07:07] LABS: CALCIUM, SERUM 8.4 mg/dL (8.5-10.1); CREATININE 0.4 mg/dL (0.6-1.3); MAGNESIUM 2.4 mg/dL (1.8-2.4); PHOSPHORUS 3.7 mg/dL (2.5-4.9); POTASSIUM 3.3 mmol/L (3.5-5.1)
[2019-05-25 07:36] LABS: BAND % (MANUAL) 6 % (0.0-5.0); LYMPHOCYTES % (MANUAL) 6 % (16-48); MONOCYTES % (MANUAL) 4 % (0-11.0); MYELOCYTES % 2 % (0-0); NEUTROPHILS % (MANUAL) 82 (42-76)
[2019-05-25 08:00] VITALS: BP 121/69
--- NOTE | 2019-05-25 08:00 | NUR ---
MS RN NOTE PATIENT IN BED ALERT ORIENTED DAUGHTER AT BEDSIDE, ON 2L NC NO SOB NOTED . RT AC AND RT FA HL INTCT AND FLUSHED WELL , PLAN OF CARE DISCUSSED WITH PATIENT AND DAUGHTER , RT ARM WITH REDNESS AND SLIGHTLY SWOLLEN .KEEP ELEVATED TOLERATED,ON CLEAR LIQUID DIET , TOLERATED WELL
[2019-05-25] MEDS: ENSURE CLEAR 237 ML LIQUID (MIX BERRY) PO SCH ×3 (08:39→16:22)
[2019-05-25] MEDS ORDERED: IV D5W 1,000 ML IV PRN (08:47)
[2019-05-25] MEDS ORDERED: HYDROCORTISONE SOD SUCCINATE 100 MG/2 ML VIAL IV SCH (09:00)
[2019-05-25] MEDS: PANTOPRAZOLE 40 MG VIAL IV SCH (09:23)
[2019-05-25] MEDS ORDERED: POTASSIUM CHLORIDE 20 MEQ POWDER PACKET PO SCH (09:30)
[2019-05-25 10:00] VITALS: BP 121/69
[2019-05-25] MEDS ORDERED: POTASSIUM CHLORIDE 20 MEQ TAB.PRT.SR PO SCH (11:00)
[2019-05-25] MEDS: POTASSIUM CHLORIDE 20 MEQ POWDER PACKET PO SCH ×2 (11:13→12:20)
--- NOTE | 2019-05-25 11:51 | NUR ---
MS RN NOTE AMBULATED WELL WITH PT USING A WALKER SAT 98% ON RA WHILE WALKING SAT 88%
[2019-05-25 12:50] LABS: ABG BASE EXCESS 12.2 mmol/L; ABG OXYGEN SATURATION 97.2 % (92.0-98.5); ABG PH 7.438 (7.350-7.450); ABG PO2 99.3 mmHg (75.0-100.0); AaDO2 31.9 mmHg; COHb 0.4 % (0.5-1.5); MetHb 0.5 % (0.0-1.5); O2Hb 96.3 % (94.0-97.0); SITE, ABG Right Radial; VENT MODE, BG 2L NC
--- NOTE | 2019-05-25 13:06 | NUR ---
MS RN NOTE PER DR MUNOZ OK TO START SOFT DIET
--- NOTE | 2019-05-25 13:13 | NUR ---
MS RN NOTE PER DR ALEXANDER CRUZ TO CHANGE DIET FROM LIQUID TO SOFT DIET. CARRIED OUT. ALSO ORDERED REPEAT H&H BECAUSE OF BLACK STOOL 3X THIS MORNING. CARRIED OUT.
[2019-05-25] MEDS: SOD FERRIC GLUC 125 MG in IV NS 0.9% 100 ML IV SCH (13:54)
[2019-05-25 15:04] LABS: HEMOGLOBIN 10.3 g/dL (11.5-14.8)
--- NOTE | 2019-05-25 15:57 | NUR ---
telephone betting clerk note Sina sharpe director of anesthesia services at beside , all needs attended
[2019-05-25 16:00] VITALS: BP 132/62
--- NOTE | 2019-05-25 17:31 | NUR ---
television newscast director note Doppler study done rt upper arm , will f\u with result
[2019-05-25] MEDS: LEVOFLOXACIN 750 MG /D5W 150ML 750 MG in PREMIX 1 EA IV SCH (17:34)
--- NOTE | 2019-05-25 18:59 | NUR ---
teletypesetter note dr Sina Lugo aware of dvt rt arm
--- NOTE | 2019-05-25 19:20 | NUR ---
RN OPENING NOTES PATIENT RESTING IN BED, AWAKE, A/OX4, ABLE TO MAKE NEEDS KNOWN. DENIES ANY PAIN. DAUGHTER AT BEDSIDE. ON OXYGEN 2L VIA NC, TOLERATING WELL, NO SOB OR RESPIRATORY DISTRESS NOTED. PER REPORT PATIENT HAS SOB W/O O2 WHILE AMBULATING. RIGHT ARM WITH REDNESS AND EDEMA, LEFT ARM ALSO SWOLLEN BUT NO REDNESS NOTED. SAFETY MEASURES IN PLACE; CALL LIGHT WITHIN REACH, SIDE RAILS UP X2, HOB ELEVATED, BED LOCKED AND IN LOWEST POSITION. WILL CONT TO MONITOR PT CLOSELY. PER AM RN REPORT, PATIENT HAS NO IV SITE DUE TO PATIENT HARD STICK, MULTIPLE ATTEMPTS DONE. AM AND PM CHARGE NURSE AWARE WELL MD. IV MEDICATIONS DUE TONIGHT WILL BE CHANGED TO PO PER MD ORDER. ALSO MD STATED HE WILL INSERT IV TOMORROW MORNING. WILL FOLLOW UP.
--- NOTE | 2019-05-25 19:35 | NUR ---
MS RN NOTE SPOKE WITH ALEXANDER PATIÑO DNP NOTIFIED THAT UNABLE TO INSERT IV HL HARD STICK .OK TO USE PROTONIX PO TILL IV HL WILL BE INSERTED WILL F\U
[2019-05-25 20:00] VITALS: BP 137/62
--- NOTE | 2019-05-25 20:24 | NUR ---
RN NOTES LEVAQUIN 750MG IV WAS SCANNED HOWEVER NOT INFUSED BY AM RN, BAG NOTED STILL FULL. PHARMACY AWARE. Addendum: 05/26/19 at 0648 by SHANNAN AGUILAR RN AM RN UNABLE TO INFUSE LEVAQUIN IV DUE TO PATIENT NOTED WITH NO IV ACCESS. AWARE AND CHANGED ROUTE TO PO.
[2019-05-25] MEDS ORDERED: ENOXAPARIN SODIUM 60 MG/0.6 ML DISP.SYRIN SQ SCH (21:00)
[2019-05-25] MEDS ORDERED: LEVOFLOXACIN (750 MG) 750 MG TABLET PO ONE (21:00)
[2019-05-25] MEDS: PANTOPRAZOLE 40 MG TABLET.DR PO SCH (21:09)
[2019-05-26 04:00] VITALS: BP 139/58
--- NOTE | 2019-05-26 06:46 | NUR ---
RN CLOSING NOTES PATIENT RESTING IN BED, AWAKE, A/OX4, ABLE TO MAKE NEEDS KNOWN. NO ACUTE CHANGES THROUGHOUT SHIFT. ALL MD ORDERS ATTENDED. DENIES ANY PAIN. DAUGHTER AT BEDSIDE. ON OXYGEN 2L VIA NC, TOLERATING WELL, NO SOB OR RESPIRATORY DISTRESS NOTED. KEPT PATIENT CLEAN, DRY, AND COMFORTABLE. SAFETY MEASURES IN PLACE; CALL LIGHT WITHIN REACH, SIDE RAILS UP X2, HOB ELEVATED, BED LOCKED AND IN LOWEST POSITION. DR. ESPINOSA TO INSERT IV TODAY. WILL ENDORSE TO AM RN FOR KACEY.
--- NOTE | 2019-05-26 07:40 | NUR ---
RN OPENING NOTES RECEIVED PATIENT RESTING IN BED, AWAKE, A/OX4, VERBALLY RESPONSIVE AND ABLE TO MAKE NEEDS KNOWN. DAUGHTER AT BEDSIDE. ON OXYGEN 2L VIA NC, TOLERATING WELL, NO SOB OR RESPIRATORY DISTRESS NOTED. RIGHT ARM WITH REDNESS AND EDEMA COMPLAINED OF PAIN , LEFT ARM ALSO SWOLLEN BUT NO REDNESS NOTED. NO IV ACCESS NOTED. SAFETY MEASURES IN PLACE; CALL LIGHT WITHIN REACH, SIDE RAILS UP X2, HOB ELEVATED, BED LOCKED AND IN LOWEST POSITION. WILL CONT TO MONITOR PT CLOSELY.
[2019-05-26 08:00] VITALS: BP 140/74
[2019-05-26] MEDS: ENSURE CLEAR 237 ML LIQUID (MIX BERRY) PO SCH ×3 (08:01→18:07)
[2019-05-26] MEDS: PANTOPRAZOLE 40 MG TABLET.DR PO SCH ×2 (08:05→21:53)
[2019-05-26 08:20] LABS: BASOPHILS % (AUTO) 0.1 % (0.0-2.0); EOSINOPHILS % (AUTO) 0.1 % (0.0-6.0); HEMATOCRIT 33 % (33-45); HEMOGLOBIN 10.3 g/dL (11.5-14.8); LYMPHOCYTES # (AUTO) 0.5 /CMM (0.8-4.8); LYMPHOCYTES % (AUTO) 4.5 % (20.0-44.0); MEAN CORPUSCULAR HGB CONC 32 g/dl (31.0-36.0); MEAN CORPUSCULAR VOLUME 93 fL (82-100); MONOCYTES # (AUTO) 0.7 /CMM (0.1-1.30); MONOCYTES % (AUTO) 6.7 % (2.0-12.0); NEUTROPHILS # (AUTO) 9.8 /CMM (1.8-8.9); NEUTROPHILS % (AUTO) 88.6 % (43.0-81.0); PLATELET COUNT (AUTO) 199 /CMM (150-450); RED BLOOD CELL COUNT(AUTO) 3.51 MIL/uL (4.0-5.2)
[2019-05-26 08:33] LABS: ALBUMIN 2.3 g/dL (3.4-5.0); BILIRUBIN,TOTAL 0.5 mg/dL (0.2-1.0); CALCIUM, SERUM 8.6 mg/dL (8.5-10.1); CREATININE 0.5 mg/dL (0.6-1.3); MAGNESIUM 2.3 mg/dL (1.8-2.4); PHOSPHORUS 3.2 mg/dL (2.5-4.9); POTASSIUM 3.1 mmol/L (3.5-5.1); TOTAL PROTEIN, SERUM 4.9 g/dL (6.4-8.2)
[2019-05-26] MEDS ORDERED: ENOXAPARIN SODIUM 40 MG/0.4 ML DISP.SYRIN SQ SCH (09:00)
[2019-05-26 10:27] LABS: NEUTROPHILS % (MANUAL) 72 (42-76)
[2019-05-26 10:28] LABS: BAND % (MANUAL) 7 % (0.0-5.0); EOSINOPHILS % (MANUAL) 2 % (0-4); LYMPHOCYTES % (MANUAL) 7 % (16-48); MONOCYTES % (MANUAL) 12 % (0-11.0)
[2019-05-26] MEDS: POTASSIUM CHLORIDE 20 MEQ TAB.PRT.SR PO SCH ×2 (10:37→11:37)
--- NOTE | 2019-05-26 10:59 | NUR ---
RN NOTES ALEXANDER ESPINOSA DNP MADE AWARE ABOUT THE CO2 RESULT OF 40 AND POTASSIUM 3.1. NO NEW ORDER.
[2019-05-26] MEDS ORDERED: DOXY100C41 PO (12:44)
[2019-05-26] MEDS ORDERED: METR250T PO (12:44)
[2019-05-26] MEDS ORDERED: [UNRECOGNIZED DRUG - CODE] PO (12:44)
[2019-05-26] MEDS ORDERED: ESOM40CA PO (12:44)
--- NOTE | 2019-05-26 14:10 | NUR ---
RN NOTES PATIENT IN BED, RESTING COMFORTABLY. ON ROOM AIR, SATURATING 86%. NO SOB NOTED.
--- NOTE | 2019-05-26 15:15 | NUR ---
RN NOTES PATIENT RESTING COMFORTABLY IN BED , IN ROOM AIR SATURATING 88%. NO SOB NOTED, NO NASAL FLARING OBSERVED, DENIES ANY DISCOMFORT OR FEELING TIGHTNESS AT THE MOMENT.
--- NOTE | 2019-05-26 15:22 | NUR ---
RN NOTES INFORMED CRACK OFF PERSON THAT PATIENT IS ONLY SATURATING 88% ON ROOM AIR , PER CRACK OFF PERSON WORKING ON DME.
[2019-05-26 16:00] VITALS: BP 94/53
--- NOTE | 2019-05-26 17:54 | NUR ---
RN NOTES INFORMED ALEXANDER ESPINOSA ABOUT THE STATUS OF THE PATIENT THAT SHE IS ONLY SATURATING BETWEEN 86-88% WHILE ON ROOM ORDER PER FRANCISCA SHE CAN GO WITH O2, TOLD HIM THAT PER BRIDGE CONSTRUCTION INSPECTOR CAN'T DC PATIENT TODAY BECAUSE THERE'S NO APPROVAL FROM HER INSURANCE FOR HER DME. PER BRIDGE CONSTRUCTION INSPECTOR HE WILL TALK TO DR ESPINOSA. CHARGE NURSE MADE AWARE .
--- NOTE | 2019-05-26 18:13 | NUR ---
PENDING DISCHARGE PATIENT OXYGEN PENDING PER CM,NURSING SUP MADE AWARE.
[2019-05-26 18:34] LABS: ABG BASE EXCESS 12.6 mmol/L; ABG OXYGEN SATURATION 79.7 % (92.0-98.5); ABG PCO2 47.1 mmHg (35.0-45.0); ABG PH 7.513 (7.350-7.450); ABG PO2 40.1 mmHg (75.0-100.0); AaDO2 53.2 mmHg; COHb 0.5 % (0.5-1.5); MetHb 0.7 % (0.0-1.5); O2Hb 78.7 % (94.0-97.0); SITE, ABG Right Brachial; VENT MODE, BG ROOM AIR
--- NOTE | 2019-05-26 19:16 | NUR ---
RN NOTES PATIENT IN RESTING COMFORTABLY IN BED. IN NO APPARENT DISTRESS NOTED. WAS PUT BACK ON NASAL CANNULA BECAUSE ONLY SATURATING 88% WHILE ON ROOM AIR. NO SOB NOTED, SATURATING WELL WHILE ON NASAL CANNULA 97%. DENIES ANY PAIN OR DISCOMFORT AT THE MOMENT. NO CHANGE OF CONDITION THROUGHOUT THE SHIFT. REQUESTED TO CHANGE HER ENSURE FLAVOR TO VANILLA INSTEAD OF STRAWBERRY INFORMED PM NURSED ABOUT IT. ALL NEEDS MET. SAFETY MEASURES IN PLACED, BED IN LOWEST POSITION, CALL LIGHT WITHIN REACHED. ENDORSED TO PM RN FOR KACEY.
[2019-05-26 20:00] VITALS: BP 136/78
--- NOTE | 2019-05-26 20:09 | NUR ---
RN NOTE ENDORSED PT TO FACUNDO DIAZ FOR CONTINUATION OF CARE.
--- NOTE | 2019-05-26 20:13 | NUR ---
RECEIVED PT IN BED A/O X 4 STABLE AND NOT IN DISTRESS.SAFETY MEASURES AT ALL TIMES. WILL CONT TO MONITOR.
[2019-05-27 04:00] VITALS: BP 133/93
--- NOTE | 2019-05-27 06:15 | NUR ---
MS RN NO SIGNIFICANT CHANGES THROUGHOUT THE SHIFT. IN STABLE AND NOT IN DISTRESS, MONITORED ACCORDINGLY, ALL NEEDS ATTENDED AND ANTICIPATED,ON 2LPM VIA NC O2 SAT 95%. SAFETY MEASURES AT ALL TIMES. ENDORSE TO NEXT SHIFT.
[2019-05-27 07:28] LABS: BASOPHILS % (AUTO) 0.4 % (0.0-2.0); EOSINOPHILS % (AUTO) 0.1 % (0.0-6.0); HEMATOCRIT 31 % (33-45); HEMOGLOBIN 9.8 g/dL (11.5-14.8); LYMPHOCYTES # (AUTO) 0.5 /CMM (0.8-4.8); LYMPHOCYTES % (AUTO) 5.3 % (20.0-44.0); MEAN CORPUSCULAR HGB CONC 32 g/dl (31.0-36.0); MEAN CORPUSCULAR VOLUME 93 fL (82-100); MONOCYTES # (AUTO) 0.8 /CMM (0.1-1.30); MONOCYTES % (AUTO) 9.8 % (2.0-12.0); NEUTROPHILS # (AUTO) 7.3 /CMM (1.8-8.9); NEUTROPHILS % (AUTO) 84.4 % (43.0-81.0); PLATELET COUNT (AUTO) 212 /CMM (150-450); RED BLOOD CELL COUNT(AUTO) 3.36 MIL/uL (4.0-5.2); WHITE BLOOD COUNT (AUTO) 8.6 K/uL (4.3-11.0)
--- NOTE | 2019-05-27 07:38 | NUR ---
MS RN OPENING NOTES RECEIVED PT IN BED, AWAKE, A/O X4. TOLERATING RA AT THIS TIME, WITH NO ACUTE RESPIRATORY DISTRESS NOTED; PT JUST WENT TO THE BATHROOM, AMBULATORY WITH MINIMAL ASSIST FROM FAMILY AT BEDSIDE. PT DENIES ANY PAIN OR DISCOMFORT AT THIS TIME. PER FAMILY, REQUESTING FOR PULMO CONSULT. NO IV ACCESS NOTED. PT KEPT COMFORTABLE IN BED. PT'S BED IN LOWEST,LOCKED POSITION, WITH SR X3. CALL LIGHT KEPT WITHIN REACH. WILL CONTINUE TO PLAN OF CARE.
[2019-05-27 07:39] LABS: CALCIUM, SERUM 8.3 mg/dL (8.5-10.1); CREATININE 0.5 mg/dL (0.6-1.3); MAGNESIUM 2.3 mg/dL (1.8-2.4); PHOSPHORUS 3.7 mg/dL (2.5-4.9); POTASSIUM 3.3 mmol/L (3.5-5.1)
[2019-05-27 08:00] VITALS: BP 132/74
[2019-05-27] MEDS: PANTOPRAZOLE 40 MG TABLET.DR PO SCH (08:28)
[2019-05-27] MEDS: ENSURE CLEAR 237 ML LIQUID (MIX BERRY) PO SCH (08:30)
[2019-05-27] MEDS ORDERED: POTASSIUM CHLORIDE 20 MEQ TAB.PRT.SR PO SCH (11:30)
[2019-05-27] MEDS ORDERED: FUROSEMIDE 40 MG/4 ML VIAL IV ONE (12:00)
[2019-05-27] MEDS ORDERED: ENSURE ENLIVE 237 ML LIQUID (VANILLA) PO SCH ×2 (12:00)
[2019-05-27] MEDS ORDERED: FUROSEMIDE 20 MG TABLET PO ONE (12:30)
[2019-05-27] MEDS ORDERED: POTASSIUM CHLORIDE 20 MEQ TAB.PRT.SR PO ONE (12:30)
--- NOTE | 2019-05-27 12:50 | NUR ---
MS RN NOTES PORTABLE OXYGEN TANK DELIVERED FOR PT TO TAKE HOME AND RECEIVED BY DAUGHTER/DONNA. PER COMPANY, OXYGEN CONCENTRATOR WILL BE DELIVERED DIRECTLY TO THE HOUSE, DAUGHTER WAS PRESENT AND AWARE.
--- NOTE | 2019-05-27 14:21 | NUR ---
MS RN CLOSING NOTES PT AWAKE, A/O X4, BEING DISCHARGE TO HOME, AMBULATORY. PT ON SUPPLEMENTARY OXYGEN AT 2L VIA NC, WITH NO ACUTE RESPIRATORY DISTRESS NOTED. PT DENIES ANY PAIN OR DISCOMFORT AT THE TIME OF DISCHARGE. DISCHARGE INSTRUCTIONS AND INVENTORY LIST SIGNED BY DAUGHTER/DONNA PRESENT AT BEDSIDE. ALL BELONGINGS WITH THE PT. PRESCRIPTIONS SENT DIRECTLY TO THE PREFERRED PHARMACY. ALL NEEDS AND CARE PROVIDED AND ATTENDED. NO IV ACCESS REMOVED. SKIN INTACT, NO PICTURES TAKEN AND FILED. VITALS STABLE, TAKEN AND RECORDED. PT AND DAUGHTER/DONNA REMINDED ABOUT FOLLOW UP APPOINTMENT SCHEDULE ON Wednesday05/29/19 12PM, INFO PROVIDED WELL. PT ESCORTED TO THE CAR BY OWN DAUGHTER/RN/DONNA. PT LEFT THE UNIT AT 1420. CHARGE NURSE/SOON AND HOSPITALIST/TS/DNP AWARE OF DISCHARGE.
== END 2019-05-28 | disposition home or self-care (01) | DRG 377 ==
LOC: TELE 05:04 → TELE1 05:28 → ICU 05-20 10:35 → MEDSG1 05-24 14:33
PROVIDERS: ATTEND Nurse Practitioner Acute Care
PROC: 02HV33Z Insertion of Infusion Device into Superior Vena Cava, Percutaneous Approach (ICD-10-PCS; 2019-05-20)
PROC: B548ZZA Ultrasonography of Superior Vena Cava, Guidance (ICD-10-PCS; 2019-05-20)
PROC: 0DJ08ZZ Inspection of Upper Intestinal Tract, Via Natural or Artificial Opening Endoscopic (ICD-10-PCS; 2019-05-21)
PROC: 0DB68ZX Excision of Stomach, Via Natural or Artificial Opening Endoscopic, Diagnostic (ICD-10-PCS; principal; 2019-05-23)
PROC: 0W3P8ZZ Control Bleeding in Gastrointestinal Tract, Via Natural or Artificial Opening Endoscopic (ICD-10-PCS; 2019-05-23)
PROC: 30233N1 Transfusion of Nonautologous Red Blood Cells into Peripheral Vein, Percutaneous Approach (ICD-10-PCS; 2019-05-23)
DX: K25.4 Chronic or unspecified gastric ulcer with hemorrhage (principal); E43 Unspecified severe protein-calorie malnutrition; I50.33 Acute on chronic diastolic (congestive) heart failure; D62 Acute posthemorrhagic anemia; E87.0 Hyperosmolality and hypernatremia; E87.3 Alkalosis; I82.621 Acute embolism and thrombosis of deep veins of right upper extremity; D69.6 Thrombocytopenia, unspecified; E87.6 Hypokalemia; I11.0 Hypertensive heart disease with heart failure; E83.51 Hypocalcemia; E83.42 Hypomagnesemia; D50.9 Iron deficiency anemia, unspecified; J20.9 Acute bronchitis, unspecified; Z79.899 Other long term (current) drug therapy; D64.81 Anemia due to antineoplastic chemotherapy; D63.0 Anemia in neoplastic disease; T45.1X5A Adverse effect of antineoplastic and immunosuppressive drugs, initial encounter; Y92.009 Unspecified place in unspecified non-institutional (private) residence as the place of occurrence of the external cause; E88.09 Other disorders of plasma-protein metabolism, not elsewhere classified; B96.81 Helicobacter pylori [H. pylori] as the cause of diseases classified elsewhere; K29.70 Gastritis, unspecified, without bleeding; Z90.710 Acquired absence of both cervix and uterus; Z68.26 Body mass index [BMI] 26.0-26.9, adult; C54.1 Malignant neoplasm of endometrium
CPT/HCPCS: 36415; 36569; 36600; 71045-TC; 80048-TC; 80053-TC; 80061-TC; 81000-TC; 82272-TC; 82533; 82728-TC; 83540-TC; 83735-TC; 83935-TC; 84100-TC; 84300-TC; 84443-TC; 84550-TC; 85025-TC; 85027-TC; 86850-TC; 86921-TC; 87040-TC; 87081-TC; 88305-TC; 88313-TC; 88342; 93307-TC; 93971-TC; 97110-TC; 97116-TC; 97530-TC; A4216; C1751; C1769; C9113; G0378; J1200; J1650; J1720; J1956; J2250; J2370; J2704; J2916; J3475; J3480; J3490; J7030; J7040; J7050; J7070; P9016-BL